=== PATIENT | female | born 1960 | race Caucasian/White ===

== ENCOUNTER 2022-12-25 21:43 | Emergency (ER) | payer MEDICARE, MEDICAID ==
[~2022-12-25] VITALS: Ht 157.5 cm; Wt 74.8 kg
--- NOTE | 2022-12-25 22:14 | ED Lower Extremity ---
General Chief Complaint: Lower Extremity Stated Complaint: RT KNEE INJ FROM FALL Nursing Triage Note: Pt ambulates to ED5 w c/o right knee pain. States was dragged by a dog and hit right knee (under knee cap) on a concrete curb approx 1530 today Source: patient History of Present Illness Date Seen by Provider: Dec 25, 2022 Time Seen by Provider: 21:55 Initial Comments PT ARRIVES VIA POV--WALKS IN ON HER OWN WITHOUT DIFFICULTY PT STATES AROUND 1530 TODAY, SHE WAS WALKING A DOG, AND THE DOG "DRAGGED HER" AND SHE FELL AND HIT HER RIGHT KNEE ON A CONCRETE CURB TODAY NO OTHER INJURIES FROM THE INCIDENT SHE HAS NOT TAKEN ANYTHING FOR PAIN AT ANY TIME SHE STATES SHE HAS HAD BENIGN TUMORS REMOVED FROM THIS KNEE X 2--IN 1979 AND 1987 PT IS HERE VISITING FROM [place] Allergies and Home Medications Patient Home Medication List Home Medication List Reviewed: Yes Review of Systems Constitutional: no symptoms reported Musculoskeletal: see HPI Skin: no symptoms reported Psychiatric/Neurological: No Symptoms Reported Past Oizdvqb-Gwkioh-Hhbwun Hx Patient Social History Tobacco Use?: Yes Tobacco type used: Cigarettes Smoking Status: Current Everyday Smoker Substance use?: No Alcohol Use?: No Pt feels they are or have been: No Immunizations Up To Date Influenza Vaccine Up-to-Date: No; Not Current First/Initial COVID19 Vaccinat: 09/19/22 Past Medical History Surgery/Hospitalization HX: heart stents in 2018, right knee surgery in 1979, hypothyroidism, hypertension BENIGN TUMORS REMOVED FROM RIGHT KNEE IN 1979 AND 1987 SPINAL FUSIONS X 2--CERVICAL AND LUMBAR SPINE Surgeries: Yes Cardiac, Coronary Stent, Orthopedic Cardiac: Yes Coronary Artery Disease, High Cholesterol, Hypertension Neurological: No Genitourinary: No Gastrointestinal: No Musculoskeletal: Yes Degenerate Disk Disease, Chronic Back Pain Endocrine: Yes Hypothyroidsim HEENT: No Cancer: No Psychosocial: No Integumentary: No Blood Disorders: No Physical Exam Vital Signs Vital Signs - First Documented 12/25/22 21:51 Temp 36.3 Pulse 107 Resp 20 B/P (MAP) 144/101 (115) Pulse Ox 96 O2 Delivery Room Air Capillary Refill : Height, Weight, BMI Height: '" Weight: lbs. oz. kg; 30.00 BMI Method: General Appearance: WD/WN, no apparent distress, other (SMILING, TALKS VERY RAPIDLY AND NON-STOP AT LENGTH. WALKS WITHOUT DIFFICULTY, AND FREELY MOVING AND BENDING HER RIGHT KNEE. REEKS OF CIGARETTES) Hips: right hip normal inspection Legs: right leg normal inspection Knees: right knee other (MILD TENDERNESS BELOW RIGHT PATELLA. NO EXTERNAL EVIDENCE OF TRAUMA, NO SWELLING. FULL ROM, NO GROSS LIGAMENT LAXITY. 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, no motor/sensory deficits, alert, normal mood/affect, oriented x 3 Skin: normal color, warm/dry Progress/Results/Core Measures Results/Orders My Orders Orders - JAMILAH CHRISTIANSEN DO Knee, Right, 3 Views (12/25/22 21:58) Vital Signs/I&O 12/25/22 12/25/22 21:51 22:30 Temp 36.3 36.3 Pulse 107 107 Resp 20 20 B/P (MAP) 144/101 (115) 144/101 Pulse Ox 96 96 O2 Delivery Room Air Room Air Blood Pressure Mean: 115 Progress Progress Note : Progress Note [facility] DO NOT SHOW ANY ACUTE PROCESS, PENDING RADIOLOGIST REVIEW DISCUSSED TEST RESULTS, ANTICIPATED COURSE, SYMPTOMATIC TREATMENT, NEED FOR FOLLOW UP AND RETURN PRECAUTIONS. Diagnostic Imaging Comments XRAYS RIGHT KNEE--PENDING RADIOLOGIST REVIEW -NO ACUTE PROCESS Reviewed: Reviewed by Me Departure Impression Primary Impression: Contusion of right knee Disposition: HOME, SELF-CARE Condition: Stable Departure-Patient Inst. Decision time for Depature: 22:24 Referrals: NO,LOCAL PHYSICIAN (PCP) Primary Care Physician Patient Instructions: Knee Pain (DC), Minor Contusion ED Add. Discharge Instructions: ICE TO AREA AT 20 MINUTE INTERVALS IBAN WRAP NEEDED FOR PAIN OR SWELLING YOU MAY TAKE TYLENOL AND MOTRIN FOR PAIN FOLLOW UP WITH YOUR DR IN 1 WEEK IF NO BETTER All discharge instructions reviewed with patient and/or family. Voiced understanding. JAMILAH CHRISTIANSEN DO Dec 25, 2022 22:14
[2022-12-25 22:30] VITALS: BP 144/101
--- NOTE | 2022-12-26 08:29 | Diagnostic Imaging Report ---
INDICATION: Knee pain, fall COMPARISON: None available. TECHNIQUE: 3 radiographs of the right knee dated 12/25/2022. FINDINGS: No acute fracture or dislocation. No destructive osseous process. Mild medial and lateral joint space narrowing with mild osteophyte formation. No significant knee joint effusion. Mild spurring of the tibial spine. No suspicious radiopaque foreign body. IMPRESSION: No acute osseous abnormality with mild degenerative changes present. Dictated by: Dictated on workstation # [id number]
== END 2022-12-25 22:30 | disposition home or self-care (01) ==
LOC: ER 21:49
DX: S80.01XA Contusion of right knee, initial encounter (principal); F17.210 Nicotine dependence, cigarettes, uncomplicated; Z28.311 Partially vaccinated for COVID-19; W18.30XA Fall on same level, unspecified, initial encounter; W22.8XXA Striking against or struck by other objects, initial encounter; Y93.K1 Activity, walking an animal
CPT/HCPCS: 73562